=== PATIENT | female | born 1965 | race Hispanic/Latino ===

== ENCOUNTER 2020-06-08 09:40 | Emergency (ER) | payer BC ==
[2020-06-08] MEDS ORDERED: KETOROLAC TROMETHAMINE 30MG/ML ONE (10:18)
[2020-06-08] MEDS ORDERED: SODIUM CHLORIDE 0.9% 1000ML 0 ML IV ONE (10:18)
== END 2020-06-08 12:35 | disposition home or self-care (01) ==
LOC: EDH 09:40
DX: S83.91XA Sprain of unspecified site of right knee, initial encounter (principal); S73.101A Unspecified sprain of right hip, initial encounter; W18.39XA Other fall on same level, initial encounter; Y93.89 Activity, other specified; Y92.89 Other specified places as the place of occurrence of the external cause; Y99.8 Other external cause status
CPT/HCPCS: 70450; 73502; 73562; J1885; J7030